=== PATIENT | female | born 1945 | race Caucasian/White ===

== ENCOUNTER 2016-10-04 10:10 | Day surgery (SDC) | payer MEDICARE ==
[~2016-10-04] VITALS: Ht 165.1 cm; Wt 97.5 kg
[~2016-10-04 10:10] MED LIST: 0.9% Sodium Chloride 1,000 ML IV SCH; AZU500 PO; CHOL100094 PO; CITA20TA2 PO; CYAN1TAB42 PO; FELO5TAB4 PO; HYDR12.5 PO; LORA5TAB8 PO; LOSA25TA21 PO; METF500T4 PO; METH-313 PO; OMEP20CA11 PO; SIMV40TA5 PO; SUCR1TAB30 PO; Sodium Chloride LOK Flush 10 mL Syringe IV PRN; TRAM50TA2 PO; estradiol PO; fentaNYL-PF 50 mCg/mL 2 mL Inj IVPUSH PRN
[2016-10-04] MEDS ORDERED: PANT20T PO (11:20)
[2016-10-04 11:22] VITALS: BP 140/72; PULSE 65; RESP 14; O2SAT 97
[2016-10-04 13:17] VITALS: BP 143/74; PULSE 70; RESP 16; O2SAT 97
[2016-10-04 13:27] VITALS: BP 127/71; PULSE 64; RESP 16; O2SAT 95
[2016-10-04 13:37] VITALS: BP 120/91; PULSE 76; RESP 16; O2SAT 95
--- NOTE | 2016-10-05 00:22 | ENDO ---
[address] [address] ENDOSCOPY PROCEDURE PATIENT: KEVIN BETANCOURT : 1945 MR#: [id number] ADMIT: 10/04/2016 JOB ID: [id number] DATE OF SERVICE: 10/04/2016 PROCEDURE: Esophagogastroduodenoscopy. INDICATION: Gastroesophageal reflux. Patient's ASA classification is II. Mallampati score is II. MEDICATIONS: Versed 8 mg, fentanyl 150 mcg. INSTRUMENT USED: GIF H 180 J. PROCEDURE DETAILS: After informed consent was obtained, the patient was brought to the GI suite, where she was placed on oxygen via nasal cannula and monitored with continuous pulse oximeter, telemetry, and blood pressure monitoring. A time-out was performed. Then, she was placed in the left lateral decubitus position and a bite block was placed. The standard esophagogastroduodenoscopy scope was inserted through the bite block and advanced under direct visualization to the second portion of duodenum without difficulty. FINDINGS: 1. Normal-appearing duodenal bulb, first and second portion. 2. Normal-appearing pylorus. 3. In the antrum and body of the stomach, there was erythema suggestive of gastritis. Multiple random biopsies were obtained. 4. Retroflexed views in the gastric body revealed a normal-appearing cardia and fundus. 5. The GE junction was at 37 cm and appeared regular. 6. Just above the GE junction, the mucosa revealed prominent palisade of vessels suggestive of mild esophagitis. Otherwise, normal appearing esophagus. IMPRESSION: 1. Gastritis. 2. Mild esophagitis. RECOMMENDATIONS: 1. Continue PPI. 2. Proceed to colonoscopy. COMPLICATIONS: None. ESTIMATED BLOOD LOSS: Less than 5 mL. MTDD
--- NOTE | 2016-10-05 00:26 | ENDO ---
[address] [address] ENDOSCOPY PROCEDURE PATIENT: KEVIN BETANCOURT : 1945 MR#: [id number] ADMIT: 10/04/2016 JOB ID: [id number] DATE OF SERVICE: 10/04/2016 PROCEDURE PERFORMED: Colonoscopy. INDICATION: Fecal occult positive blood test. Please see above for ASA classification, Mallampati score, and medications. INSTRUMENT USED: PCF H 180 AL. PREP QUALITY: Fair. PROCEDURE DETAILS: After completion of the EGD exam, the patient was turned and a digital rectal exam was performed which was unremarkable. The colonoscope was then inserted into the rectum and advanced under direct visualization to the cecum. A polyp was identified in the ascending colon; however, as we were trying to obtain position, patient was complaining of pain. Despite further sedation, we were unable to control her pain. At this point, anesthesiologist called; however, was not available for deeper sedation. At this point, the procedure was aborted. The colonoscope was then withdrawn back into the rectum, retroflexion was performed. Following retroflexion, remaining air in the rectum was suctioned and procedure was completed. FINDINGS: In the ascending colon, there was a flat 6 mm polyp, not removed. RECOMMENDATIONS: Repeat colonoscopy with anesthesia assistance. COMPLICATIONS: None. ESTIMATED BLOOD LOSS: Zero.
--- NOTE | 2016-10-08 07:29 | PATH ---
SURGICAL PATHOLOGY Attending Physician:Belinda Castano CASE STATUS: Signed Out PATIENT NAME: KEVIN BETANCOURT PID: [id number] : 1945 DATE COLLECTED:10/04/2016 00:00 SPECIMEN: Gastric, Biopsy CLINICAL HISTORY: BLOOD IN STOOL, GERD 1). GASTRIC BIOPSY FINAL DIAGNOSIS: 1.GASTRIC BIOPSY: MILD DIFFUSE CHRONIC GASTRITIS INVOLVING FUNDIC AND ANTRAL MUCOSA. Negative for evidence of Helicobacter. Negative for intestinal metaplasia. Negative for dysplasia and malignancy. ICD10 code K29.70 GROSS DESCRIPTION: The specimen is received in one formalin filled container labeled with the patient's name, sublabeled "gastric" and consists of 5 portions of tissue which aggregate to 0.4 x 0.4 x 0.2 CM. The specimen is entirely submitted in one cassette. 10/05/2016 [facility] MICRO DESCRIPTION: See diagnosis. ICD-9 CODES: CPT CODES: 1: 04614 Electronically Signed Out Segundo Edwards MD [facility] [address], [place] [address] Technical component performed at [facility], [facility] [address], [place], [address]
[2016-11-12] MEDS ORDERED: ESTR1TAB24 PO (15:14)
[2016-11-12] MEDS ORDERED: HYDR25TA4 PO (15:14)
[2016-11-12] MEDS ORDERED: METF500T4 PO (15:14)
[2016-11-12] MEDS ORDERED: CYAN250014 PO (15:14)
[2016-11-12] MEDS ORDERED: SIMV10TA4 PO (15:14)
[2016-11-12] MEDS ORDERED: AZU500 PO (15:14)
[2016-11-12] MEDS ORDERED: SUCR1TAB30 PO (15:14)
[2016-11-12] MEDS ORDERED: FELO5TAB4 PO (15:14)
[2016-11-12] MEDS ORDERED: TRAM50TA2 PO (15:14)
[2016-11-12] MEDS ORDERED: LOSA25TA21 PO (15:14)
[2016-11-12] MEDS ORDERED: PANT40TA2 PO (15:14)
[2016-11-12] MEDS ORDERED: CITA20TA11 PO (15:14)
[2016-11-12] MEDS ORDERED: METH-313 PO (15:14)
[2016-11-12] MEDS ORDERED: OMEP20TA24 PO (15:14)
[2016-11-12] MEDS ORDERED: CHOL10008 PO (15:14)
== END 2016-10-04 23:59 | disposition home or self-care (01) ==
LOC: END 10:10
PROVIDERS: ATTEND Internal Medicine Gastroenterology
DX: R19.5 Other fecal abnormalities (principal); K63.5 Polyp of colon; K21.9 Gastro-esophageal reflux disease without esophagitis; K29.50 Unspecified chronic gastritis without bleeding; K20.9 Esophagitis, unspecified; E11.9 Type 2 diabetes mellitus without complications; M19.91 Primary osteoarthritis, unspecified site
CPT/HCPCS: 43239; 45378; 99153; G0500; J7030

== ENCOUNTER 2016-11-13 00:10 | Day surgery (SDC) | payer MEDICARE ==
[~2016-11-13] VITALS: Ht 166.4 cm; Wt 94.8 kg
[~2016-11-13 00:10] MED LIST changes: -0.9% Sodium Chloride 1,000 ML IV SCH; +CHOL10008 PO; -CHOL100094 PO; +CITA20TA11 PO; -CITA20TA2 PO; -CYAN1TAB42 PO; +CYAN250014 PO; +ESTR1TAB24 PO; -HYDR12.5 PO; +HYDR25TA4 PO; -LORA5TAB8 PO; -OMEP20CA11 PO; +OMEP20TA24 PO; +PANT40TA2 PO; +SIMV10TA4 PO; -SIMV40TA5 PO; -Sodium Chloride LOK Flush 10 mL Syringe IV PRN; -estradiol PO; -fentaNYL-PF 50 mCg/mL 2 mL Inj IVPUSH PRN
[2016-11-13] MEDS ORDERED: Propofol 10 mg/mL 20 mL Inj ONE (00:11)
[2016-11-13] MEDS ORDERED: Lactated Ringer's 1,000 ML IV ONE (06:00)
[2016-11-13 09:49] VITALS: BP 147/76; PULSE 84; RESP 17; O2SAT 94
[2016-11-13] MEDS ORDERED: Lactated Ringer's 1,000 ML IV SCH (10:46)
--- NOTE | 2016-11-13 10:46 | PCM.HPANE ---
Patient Data Date of Service: Nov 13, 2016 Surgeon Admitting Provider: Attending Provider:Av Yuen MD Primary Care Physician:Kimberly White MD Other Provider:Nicole Kaur Anesthesia Reason for Visit Positive Fecal Occult Blood Test Ht/WT & BMI Height (Feet): 5 Height (Inches): 5.5 Weight (Kilograms): 94.8 Body Mass Index 34.00 Allergies Coded Allergies: hydromorphone (Verified Allergy, Severe, vomiting, 11/12/16) meperidine (Verified Allergy, Severe, restlessness,light sensitivity, 11/12) morphine (Verified Allergy, Severe, vomitting, 11/13/16) propoxyphene (Verified Allergy, Severe, Hallucinations, 11/13/16) codeine (Verified Allergy, Intermediate, N/V, 11/12/16) epinephrine (Verified Allergy, Intermediate, bizarre behavior, 11/12/16) Past Anesthesia History Anesthesia History: Denies:: Abnormal Airway, Anesthesia Reactions, Difficult Intubation, Fam Anesthesia Reaction, Fam Malignant Hypertherm, Malignant Hyperthermia Diabetes History Hx Diabetes?: Yes (type 2) Current Bedside Blood Glucose: 130 MRSA MRSA: No Medications Blood Thinner: Aspirin Home Meds Incl Beta Parveen: No Reported Medications Cholecalciferol (Vitamin D3) (Vitamin D3)1,000 Unit Tab.chew1,000 Unit PO DAILY 11/12/16 Cyanocobalamin (Vitamin B-12) (Vitamin B12)2,500 Mcg Tab.chew2,500 Mcg PO 11/12/16 Simvastatin 10 Mg Pddfhe90 Mg PO HS Ref 0 11/12/16 Sulfasalazine 500 Mg Tablet1,500 Mg PO BID 30 Days Ref 0 11/12/[address] (Protonix)40 Mg Lmslau43 Mg PO DAILY Ref 0 11/12/16 Metformin 500 Mg Sedzxs297 Mg PO BID Ref 0 11/12/16 Losartan Potassium 25 Mg Babqeg51.5 Mg PO DAILY 11/12/16 Hydrochlorothiazide 25 Mg Vcdwnp37 Mg PO DAILY 30 Days Ref 0 11/12/16 Estradiol 1 Mg Tablet1 Mg PO DAILY Ref 0 11/12/16 Citalopram 20 Mg Tgmtun98 Mg PO DAILY Ref 0 11/12/16 Discontinued Reported Medications Tramadol 50 Mg Spfbgz20 Mg PO Q4H PRN For Pain Ref 0 11/12/16 Methocarbamol (Robaxin-750)750 Mg Apophj809 Mg PO TID 11/12/16 Omeprazole Magnesium (Prilosec Otc)20 Mg Tablet.dr20 Mg PO DAILY #1 PKG Ref 0 11/12/16 Felodipine ER 5 Mg Tab.er.24h5 Mg PO DAILY Ref 0 11/12/16 Sucralfate (Carafate)1 Gm Vywpov87 Ml PO QID Ref 0 11/12/[address] (Protonix)20 Mg Gsmedt97 Mg PO DAILY Ref 0 10/04/16 Losartan Potassium 25 Mg Njyuvz79.5 Mg PO DAILY 10/02/16 Felodipine ER 5 Mg Tab.er.24h5 Mg PO DAILY Ref 0 10/02/16 Sucralfate (Carafate)1 Gm Tablet1 Gm PO QID Ref 0 10/02/16 Cyanocobalamin/Folic Acid (Vitamin J96-Aekwc Acid Tablet)1 Each Tablet1 Each PO 12/07/13 Cholecalciferol (Vitamin D3) (Vitamin D3)1,000 Unit Capsule1,000 Unit PO 12/07/13 Simvastatin-Expunged Drug, Choose New Med! 40 Mg Arxdtb03 Mg PO HS 04/16/13 Citalopram-Expunged Drug, Do Not Renew! 20 Mg Mbgbvj18 Mg PO DAILY 04/14/13 [estradiol] No Conflict Check1 Tab PO DAILY 04/14/13 Hydrochlorothiazide-Expunged, Do Not Renew! 12.5 Mg Aqbpawm04.5 Mg PO DAILY 04/14/13 Metformin-Expunged Drug, Do Not Renew! 500 Mg Ncsjhb459 Mg PO BID CONTRAINDICATED: MALES SrCr 1.5 OR GREATER; FEMALES SrCr 1.4 ORGREATER ORCrCl<60; HOLD METFORMIN 48 HOURS AFTER IV CONTRAST ADMINISTRATION. 04/14/13 History History of ENT Problems?: No HEENT History: Denies:: Abnormal Airway Cataracts Difficult Intubation Dysphagia Glaucoma Hearing Problem Sinus Problem TMJ Denture Type: None Teeth Condition: Missing Teeth Hx of Heart Problems?: Yes Cardiovascular History: Positive for:: Hypertension Denies:: AICD Atrial Fibrillation Chest Pain Congestive Heart Failure Pacemaker Valvular Heart Disease Hx of Respiratory Problem?: No Respiratory History: Denies:: Asthma COPD Cough Hemoptysis Pneumonia Tuberculosis Hx Neurologic Problems?: No Neurological History: Denies:: Alzheimer's Disease CVA Dementia Dizziness Headaches Multiple Sclerosis Parkinson's Disease Peripheral Neuropathy Seizures TIA Hx of GI Problems?: Yes Hx of Problems?: No Genitourinary History: Denies:: HX of Hemodialysis Kidney Stones Urinary Tract Infection Female Hx: Denies:: Currently Hx Musculoskeletal Problems?: No Musculoskeletal History: Denies:: Joint Replacement Psycho Social History: Positive for:: Hx Depression (MEDICATED) Denies:: Anxiety Hx Surgeries?: Yes (appy, exp lap, tubal ligation,gallbladder) Hx Any Other Health Problems?: Yes Hx Diabetes: Yes (type 2)Bedside Blood Glucose: 130 Hx Alcohol Use: NoHx Substance Use: No Smoking Status: Never Smoker Have You Smoked inLast 12 mo: No Stop/Bang Treated for Sleep Apnea?: Yes Do You Have a CPAP Machine?: Yes Risk Assessment Category Category 1A: Patient has history of documented sleep apnea, and HAS NOT received any narcotic, sedative or anesthesia administration during this stay. Category 1B: Patient has history of documented sleep apnea, and HAS received any narcotic , sedative or anesthesia administration during this stay Category 2: Patient has SUSPECTED Obstructive Sleep Apnea, and HAS received any narcotic , sedative or anesthesia administration during this stay. Category 3: Patient has SUSPECTED Obstructive Sleep Apnea and HAS NOT received narcotic, sedative or anesthesia administration during this stay. Category 4: Outpatient in Procedural Areas with known sleep apnea or who screen positive for High Risk via the STOP/BANG questionnaire. Exam Exam Vital Signs Vital Signs Date Time Temp Pulse Resp B/P Pulse Ox O2 Delivery O2 Flow Rate FiO2 11/13/16 09:49 84 17 147/76 94 Room Air General Appearance: Alert, Oriented X3, Cooperative, No Acute Distress HEENT/AIRWAY: MP 2 Lungs: Normal Air Movement Heart: Exam Unremarkable Meds/Labs/Diagnostics Bedside Blood Glucose: 130 Plan Impression Patient chart reviewed, patient interviewed and anesthestic plan with risks, benefits, and alternatives discussed, and informed consent obtained. ASA Physical Status: ASA2 Mod Systemic Disease Anesthetic Plan: MAC Bene/Risks/Altern/Consents: Yes HP Complete Prior to Induction: Yes Bryan Mccormack MD Nov 13, 2016 10:26
[2016-11-13] MEDS ORDERED: Ondansetron 2 mg/mL 2 mL Inj IVPUSH PRN (10:50)
[2016-11-13] MEDS ORDERED: MetoCLOpramide 5 mg/mL 2 mL Inj IVPUSH PRN (10:50)
[2016-11-13 11:14] VITALS: BP 139/74; PULSE 67; RESP 16; O2SAT 96
--- NOTE | 2016-11-13 11:21 | PCM.ANEP1 ---
Post Anesthesia PACU Phase 1 Assessment Date of Service: Nov 13, 2016 Vital Signs Vital Signs Date Time Temp Pulse Resp B/P Pulse Ox O2 Delivery O2 Flow Rate FiO2 11/13/16 11:14 36.5 67 16 139/74 96 Room Air 11/13/16 09:49 84 17 147/76 94 Room Air Anesthetic Administered: GA Level of Alertness: Awake, talking HOLLAND's with Equal Strength: No Pain: No Nausea or Vomiting: No CV Function & Hydration Stable: Yes Airway Device: Oxygen Delivery: Room Air Lungs: Normal Air Movement Dermatome Level: Full Sensation PACU Phase 2 Assessment Follow up Care: N/A Patient Instructions Provided: N/A Bryan Mccormack MD Nov 13, 2016 11:21
[2016-11-13 11:24] VITALS: BP 125/63; PULSE 63; RESP 16; O2SAT 97
[2016-11-13 11:31] VITALS: BP 139/72; PULSE 60; RESP 16; O2SAT 97
--- NOTE | 2016-11-13 13:32 | ENDO ---
[address] [address] ENDOSCOPY PROCEDURE PATIENT: KEVIN BETANCOURT : 1945 MR#: [id number] ADMIT: 11/13/2016 JOB ID: [id number] DATE OF SERVICE: 11/13/2016 PROCEDURE: Colonoscopy. PREOPERATIVE DIAGNOSIS: Guaiac-positive stools. POSTOPERATIVE DIAGNOSIS: Mild sigmoid diverticulosis. ANESTHESIA: Monitored anesthesia care. COMPLICATIONS: None. BLOOD LOSS: Minimal. DESCRIPTION OF PROCEDURE: After risks and benefits explained to the patient, informed consent was obtained. After anesthesia administered, colonoscope was inserted from rectum to cecum. Mucosa carefully examined. Prep of the patient is fair. After procedure, the scope withdrawn and procedure terminated. PROCEDURAL FINDINGS: Upon inspection of anus, no masses, hemorrhoids, ulcers, or fissures that were seen throughout the entire examination. There was mild sigmoid diverticulosis. There were no polyps or masses that were seen. Retroflexion normal. The prep was fair to suboptimal. IMPRESSION: 1. Fair to suboptimal preparation. 2. Mild sigmoid diverticulosis. RECOMMENDATION: 1. High-fiber diet. 2. Repeat colonoscopy in five years given the prep.
== END 2016-11-13 23:59 | disposition home or self-care (01) ==
LOC: END 00:10
PROVIDERS: ATTEND Internal Medicine Gastroenterology
DX: R19.5 Other fecal abnormalities (principal); K57.30 Diverticulosis of large intestine without perforation or abscess without bleeding; Z86.010 Personal history of colon polyps; E11.9 Type 2 diabetes mellitus without complications; K21.9 Gastro-esophageal reflux disease without esophagitis; I10 Essential (primary) hypertension
CPT/HCPCS: 45378; J7120